=== PATIENT | male | born 1970 | race Caucasian/White ===

== ENCOUNTER 2019-08-27 13:02 | Emergency (ER) | payer OTHER, SELFPAY ==
[2019-08-27 13:03] VITALS: BP 136/79; PULSE 92; RESP 17; TEMP 36.1; O2SAT 99; BMI 27.3
--- NOTE | 2019-08-27 13:17 | ED.DCSUM_ITS ---
- ER Visit Summary Date of Service: 08/27/19 Chief Complaint: [Laceration right thumb] History of Present Illness: The patient is a 48 M [resented to the ER with a laceration to his right thumb. Patient was seen with physician tmd teacher assistant Matthew Diaz. Patient states that he was using a utility knife to cut some ties when he accidentally lacerated his right hand. Patient is ambidextrous but was using his left hand to cut.. He is unsure of his last tetanus. No other medical history.] Physical Examination: [Right hand-patient has a 3 cm laceration over the dorsum of the first carpal of the right thumb. He is got good flexion extension of the thumb against resistance. The laceration appears to abut the edge of the extensor tendon.] Test Results: [None indicated] Emergency Department Course and Treatment: [Patient had laceration repair performed by physician tmd teacher assistant.] Treatment Plan: [Patient to follow-up with primary care physician in 10 days for suture removal] Disposition: [Discharged home in stable condition] Impression: [Right thumb laceration-simple repair-3 cm] This note was generated with [employer] dictation software. It may contain incorrect words, spelling, and punctuation that were not noted in review of the chart prior to signing ED Disposition - Plan for ED Patient: Referrals: Shahida Borrego DO [Primary Care Provider] -
--- NOTE | 2019-08-27 13:32 | ED.VIS.UPPEX ---
History of Present Illness Chief Complaint: Laceration Informant: Patient, Family Occurred: Today Mechanism/Context: Incised Onset: Today Context: Sudden Onset Timing: Continuous Quality of Pain: Throbbing Location: right hand Current Severity: Moderate Maximum Severity: Severe Worsened by: nothing Relieved by: nothing Associated Symptoms: Negative for: Parasthesia, Weakness, Loss of Funtion Tetanus Immunization: >10 years Prior similar symptoms: No Recent Illness/Hospitalization: No Past Medical History - Allergies and Home Meds Allergies/Adverse Reactions: Allergies No Known Allergies Allergy (Verified 08/27/19 13:03) Primary Care Physician: Shahida Borrego DO [Primary Care Provider] - Prior records reviewed: Yes Past Medical History: None Surgical History: noncontributory Smoking Status: Current every day smoker Alcohol: Occasional Drugs: None Review of Systems All systems negative except as indicated General: Denies: Chills, Fever, Sweats Eyes: Denies: Visual changes - bilaterally, Diplopia ENT: Denies: Rhinorrhea, Sore throat Cardiovascular: Denies: Chest pain, Palpitations Respiratory: Denies: Dyspnea, Cough, Dyspnea on exertion Gastrointestinal: Denies: Abdominal pain, Nausea, Vomiting, Diarrhea, Melena, Hematochezia Genitourinary: Denies: Dysuria, Hematuria, Frequency Musculoskeletal: Denies: Back pain, Extremity Pain Skin: Reports: Wounds. Denies: Rash, Abscess, Abrasions Neurological: Denies: Headache, Weakness, Numbness Physical Exam Vital Signs/Narrative: Vital Signs Temp Pulse Resp BP Pulse Ox 08/27/19 13:03 96.9 F L 92 17 136/79 H 99 Inital Vital Signs reviewed: Yes Right Hand: - - 3 cm laceration dorsal aspect first carpal. There is no active bleeding. He had normal active range of motion with flexion extension abduction and adduction of the thumb. Strength testing was 5 out of 5. Capillary refill and sensation were both normal. General: Well nourished, Well developed Head: Normocephalic, Atraumatic Eyes: Perrl, EOMI ENT: No Trauma, Moist Mucous Membranes Neck: Nontender, Full ROM Cardiovascular: Regular rate, Regular rhythm, No murmurs Respiratory: No distress, CTA bilaterally, Chest nontender Abdomen: Soft, Nontender, Nondistended, Normal bowel sounds Back: Nontender Skin: Normal color, No rash Neurological: Alert, Oriented x3, Cranial nerves II-XII grossly intact, Normal Strength, Normal Sensation Psychological: Normal affect Diagnostic/Tx/Re-eval - Medical Decision Making Tetanus updated. Wound was thoroughly anesthetized cleansed irrigated evaluated and sutured see procedure note. Patient will be discharged home with instructions to have these removed in 10 days. Discussed proper wound care and signs of infection to monitor for. He was agreeable with plan all questions answered. Procedures - Lacerations No standard instances Length: 3 cm Depth: Skin Shape: Linear Prep: Sterile Conditions, Betadine Laceration Repair: Lidocaine, Local, Wound explored Irrigated (ml): 120 Number of Sutures/Hannacroix: 5 Suture Information: Ethilon, Simple, 4-0 ED Disposition - Plan for ED Patient: Disposition: Home or Assisted Living Diagnosis: Laceration of left hand, Tetanus toxoid vaccination administered at current visit Instructions: ED Laceration Ext Sutr Stap Tape Referrals: Shahida Borrego DO [Primary Care Provider] - 10 Day for suture removal
[2019-08-27] MEDS: Diphth,Pertuss(Acell),Tet Vac 0.5 ML Vial IM (13:35)
== END 2019-08-27 13:50 | disposition home or self-care (01) ==
LOC: ED 13:42
PROVIDERS: Emergency Provider Physician Assistant Medical; PCP Internal Medicine
DX: S61.011A Laceration without foreign body of right thumb without damage to nail, initial encounter (principal); W26.0XXA Contact with knife, initial encounter; Y93.9 Activity, unspecified; Y92.9 Unspecified place or not applicable; Z23 Encounter for immunization; F17.200 Nicotine dependence, unspecified, uncomplicated
CPT/HCPCS: 12002; 90471; 90715; 99284

== ENCOUNTER 2019-09-23 16:37 | Emergency (ER) | payer OTHER, SELFPAY ==
[2019-09-23 16:38] VITALS: BP 160/100; PULSE 109; RESP 18; TEMP 36; O2SAT 96; BMI 29.6
--- NOTE | 2019-09-23 16:56 | EKG12_ITS ---
Test Reason : NEURO SYM Blood Pressure : / mmHG Vent. Rate : 099 BPM Atrial Rate : 099 BPM P-R Int : 162 ms QRS Dur : 092 ms QT Int : 362 ms P-R-T Axes : 055 054 050 degrees QTc Int : 464 ms Normal sinus rhythm Normal ECG Confirmed by NASIR THOMPSON ([id number]), news assignment editor NORMAN LANDRY ([id number]) on 09/25/2019 2:03:50 PM Referred By: Confirmed By:NASIR THOMPSON
--- NOTE | 2019-09-23 16:57 | ED.VIS.CHEST ---
History of Present Illness Informant: Patient Onset: Today Activity at onset: Rest Timing: Continuous Quality: Sharp, Stabbing Location: Left Chest Current Severity: Mild Maximum Severity: Moderate Worsened By: Movement of Arm Relieved By: Nothing Associated Symptoms: Lightheadedness, Palpitations. Negative for: Nausea, Vomiting, Diaphoresis, Dyspnea, Cough, Fever, Acid Reflux Narrative: 49-year-old male presents to the emergency department complaining of chest pain. The patient states that he was playing darts with his friends had drank a couple of beers started to feel lightheaded started to have palpitations and left-sided chest pain rating down his left arm. He called his son who drove him here and symptoms have resolved on arrival. They last about 30 minutes. No recent travel or surgery no history of DVT or PE he denies any history of coronary disease, he denies any leg pain or swelling vomiting diarrhea fevers cough or upper respiratory symptoms. Prior Similar Symptoms: No Recent Illness/Hospitalization: No CVD Risk Factors: Smoking. Negative for: Hypertension, Diabetes, Hypercholesterolemia, Family History 1' </=55 PE Risk Factors: Negative for: Recent Travel/Surgery, Recenet Immobilization, Prior DVT or PE, Cancer, OCP + Smoking + >/=35 TAD Risk Factors: Negative for: Marfan's Syndrome, Hypertension, Family History <Matthew Green - Last Filed: 09/23/19 17:58> <Leonel Capellan - Last Filed: 09/23/19 22:34> Chief Complaint: General Illness Past Medical History Prior records reviewed: Yes Past Medical History: - - Anxiety Surgical History: - - Left shoulder surgery Lives: With Family Smoking Status: Current every day smoker Alcohol: Occasional Drugs: None <Matthew Green - Last Filed: 09/23/19 17:58> <Leonel Capellan - Last Filed: 09/23/19 22:34> - Allergies and Home Meds Allergies/Adverse Reactions: Allergies No Known Allergies Allergy (Verified 09/23/19 16:40) Primary Care Physician: Shahida Borrego DO [Primary Care Provider] - Review of Systems All systems negative except as indicated General: Denies: Chills, Fever, Sweats Eyes: Denies: Visual changes - left, Visual changes - right, Visual changes - bilaterally, Blurred vision - left, Blurred vision - right, Blurred Vision - bilaterally, Diplopia ENT: Denies: Bilateral ear pain, Left ear pain, Right ear pain, Rhinorrhea, Sore throat Cardiovascular: Reports: Chest pain, Palpitations, Heart racing Respiratory: Denies: Dyspnea, Cough, Dyspnea on exertion Gastrointestinal: Denies: Abdominal pain, Nausea, Vomiting, Diarrhea, Melena, Hematochezia Genitourinary: Denies: Dysuria, Hematuria, Frequency Musculoskeletal: Denies: Back pain, Extremity Pain Skin: Denies: Rash, Wounds Neurological: Denies: Headache, Weakness, Numbness Psych: Reports: Anxiety. Denies: Depression <Matthew Green - Last Filed: 09/23/19 17:58> Physical Exam Vital Signs/Narrative: Vital Signs Temp Pulse Resp BP Pulse Ox 09/23/19 16:38 96.8 F L 109 H 18 160/100 H 96 Inital Vital Signs reviewed: Yes General: Well nourished, Well developed, No Acute Distress Head: Normocephalic, Atraumatic Eyes: Perrl, EOMI ENT: Moist mucous membranes, No rhinorrhea Neck: Supple, Nontender Cardiovascular: Regular rate, Regular rhythm, No murmurs Respiratory: No distress, CTA bilaterally, Chest nontender Abdomen: Soft, Nontender, Nondistended, Normal bowel sounds Back: Nontender, Normal Inspection Extremities: Nontender, No edema Skin: Normal color, No rash Neurological: Alert, Oriented x3, Cranial nerves II-XII grossly intact, Normal Strength, Normal Sensation Psychological: Normal affect, Normal Mood <Matthew Green - Last Filed: 09/23/19 17:58> Vital Signs/Narrative: Vital Signs Pulse Resp BP Pulse Ox 09/23/19 21:18 88 16 110/80 99 09/23/19 19:28 99 20 H 109/81 H 97 <Leonel Capellan - Last Filed: 09/23/19 22:34> Diagnostic/Tx/Re-eval Chest X-Ray - ED: 1 View, Read by ED Physician, Read by Radiologist, No Acute Disease - Rhythm Strip Rhythm Strip: Sinus Rhythm Rate: 99 Ectopy: None - EKG Initial EKG Interpretation: Sinus Rhythm, No Acute Injury Pattern Prior: Unchanged Repeat Eval: Pain Free <Matthew Green - Last Filed: 09/23/19 17:58> - Medical Decision Making Appears well and nontoxic. Vital signs within normal limits. Patient seen with physician's assistant clinical director. Personally a weighted the patient myself at the bedside. Patient had a story of fleeting chest pain in route to EMS. States that he had visual changes while playing darts and drinking alcohol. Patient denies any head trauma. States that all the symptoms have resolved at this time. CT brain negative. Two troponins negative. 2 EKGs also negative. Patient feeling much improved. Asked to follow-up with his primary care provider and return for any new or worsening symptoms. Patient agreeable and discharged home in stable condition. <Leonel Capellan - Last Filed: 09/23/19 22:34> ED Disposition <Matthew Green - Last Filed: 09/23/19 17:58> <Leonel Capellan - Last Filed: 09/23/19 22:34> - Plan for ED Patient: Disposition: Home or Assisted Living Diagnosis: Chest pain, Dizziness Instructions: ED Chest Pain Atypical Unkn Cause, ED Dizziness [facility] Referrals: Shahida Borrego DO [Primary Care Provider] -
--- NOTE | 2019-09-23 17:40 | RAD_ITS ---
STUDY: X-RAY CHEST REASON FOR EXAM: Male, 49 years old. PT STATES SUDDEN ONSET LOSS OF SIGHT, N/T RIGHT ARM, INCREASED HR TECHNIQUE: Single AP portable view of the chest. COMPARISON: Prior study of 06/26/2013 FINDINGS: air sampling and monitoring leads are present. The lungs are clear and expanded. There is no demonstrated pleural abnormality. Normal size heart. Normal mediastinum and theodora. Normal visualized pulmonary arteries. Normal visualized aortic arch and descending thoracic aorta. Normal visualized thoracic spine. There is an old healed fracture of the right fifth rib. There is no demonstrated abnormality of the visualized soft tissue structures of the upper abdomen. RAD/Chest 1 View (Portable) IMPRESSION: No acute cardiopulmonary disease process is seen. Electronically Signed: Lewis Sandy MD at 18:02 EDT , Service support ,
[2019-09-23 17:41] LABS: Absolute Lymphocyte Count 2.09 X10^3/uL (0.83-4.51); Absolute Neutrophil Count 2.5 X10^3/uL (2.0-7.7); Basophil# 0.06 X10^3/uL; Basophil% 1.1 % (0-1); Eosinophil# 0.39 X10^3/uL; Hemoglobin 15.1 g/dL (13.0-16.5); Lymphocyte # 2.09 X10^3/ul (4.0); Lymphocyte % 37.4 % (19-41); Mean Corp Hgb Conc 34.3 g/dL (32-36); Mean Corpuscular Hgb 31.9 pg (27.0-32.0); Monocyte# 0.58 X10^3/uL; Monocyte% 10.4 % (0-10); NRBC Flagged by Analyzer 0 % (0-5); Neutrophil # 2.45 X10^3/uL (2.7-7.7); Neutrophil % 43.7 % (47-70); Platelet Count 352 K/mm3 (150-450); RBC Distribution Width CV 12.5 % (11.6-14.6); RBC Distribution Width SD 42.9 fl (35.1-43.9); Red Blood Count 4.73 M/mm3 (4.6-6.2); White Blood Count 5.6 K/mm3 (4.4-11.0)
[2019-09-23 17:58] LABS: Anion Gap 8 (5-15); BUN 9 mg/dL (7-18); BUN/Creat Ratio 8.1 RATIO (10-20); Calcium,Total 8.7 mg/dL (8.5-10.1); Chloride 106 mmol/L (98-107); Creatinine, Serum 1.11 mg/dL (0.70-1.30); EST Glomerular Filtration Rate 75 mL/min (>60); Est Glom Filt Rate - Afr Amer 90 mL/min (>60); Estimated Creatinine Clearance 74.44 ml/min; Glucose 88 mg/dL (74-106); Potassium 3.7 mmol/L (3.5-5.1); Sodium Level 138 mmol/L (136-145)
--- NOTE | 2019-09-23 18:32 | EKG12_ITS ---
Test Reason : DYSRHYTHMIA Blood Pressure : / mmHG Vent. Rate : 093 BPM Atrial Rate : 093 BPM P-R Int : 156 ms QRS Dur : 084 ms QT Int : 366 ms P-R-T Axes : 059 061 060 degrees QTc Int : 455 ms Normal sinus rhythm Normal ECG Confirmed by NASIR THOMPSON ([id number]), film editor supervisor NORMAN LANDRY ([id number]) on 09/25/2019 2:04:00 PM Referred By: CL Confirmed By:NASIR THOMPSON
--- NOTE | 2019-09-23 18:33 | CT_ITS ---
STUDY: CT BRAIN WITHOUT CONTRAST REASON FOR EXAM: Male, 49 years old. LOSS OF SIGHT-PT SEEINGGRAY ONLY,NUMBNESS AND TINGLING TO LT ARM RADIATION DOSAGE (If Supplied By Facility): CTDIvol = ( 44.99 ) mGy, DLP = ( 812.98 ) mGycm TECHNIQUE: Transaxial CT imaging of the brain was performed without administration of intravenous contrast material. Individualized dose optimization techniques were used for this CT. COMPARISON: No relevant priors. FINDINGS: Normal soft tissue structures. Normal calvarium. Normal size ventricles and extra-axial spaces for the patient''s age. Normal white matter tracts of the cerebral hemispheres. Normal basal ganglia and thalami. Normal brainstem. Normal cerebellum. There is no intracranial hemorrhage. There are no findings of an acute ischemic infarction. Normal visualized paranasal sinuses. CT/Brain/Head without Contrast IMPRESSION: Normal unenhanced CT scan of the brain. If clinically indicated, CTA brain and/or MRI may be helpful for further evaluation at this time. Electronically Signed: Lewis Sandy MD at 19:43 EDT , Service support ,
[2019-09-23 19:28] VITALS: BP 109/81; PULSE 99; RESP 20; O2SAT 97
[2019-09-23 21:18] VITALS: BP 110/80; PULSE 88; RESP 16; O2SAT 99
[2019-09-23 22:27] VITALS: BP 110/80; PULSE 88; RESP 16; O2SAT 99
== END 2019-09-23 22:27 | disposition home or self-care (01) ==
PROVIDERS: Physician Assistant Medical; Emergency Provider Emergency Medicine; PCP Internal Medicine
DX: R07.9 Chest pain, unspecified (principal); R42 Dizziness and giddiness; F41.9 Anxiety disorder, unspecified; F17.200 Nicotine dependence, unspecified, uncomplicated; Z79.899 Other long term (current) drug therapy
CPT/HCPCS: 70450; 71045; 80048; 84484; 85025; 93005; 99284

== ENCOUNTER 2023-07-16 12:53 | Emergency (ER) | payer BC, SELFPAY ==
[2023-07-16 12:54] VITALS: BP 136/98; PULSE 85; RESP 14; TEMP 36; O2SAT 98
[2023-07-16 13:06] VITALS: BMI 29.2
--- NOTE | 2023-07-16 13:07 | ED.VIS.BACK ---
HPI History of Present Illness Chief Complaint: Back [facility] Home Medications buspirone 15 mg tablet 15 mg PO DAILY PRN Anxiety 09/23/19 [History Last Taken Unknown] duloxetine 60 mg capsule,delayed release 60 mg PO DAILY 09/23/19 [History Last Taken Unknown] hydroxyzine HCl 50 mg tablet 50 mg PO DAILY 09/23/19 [History Last Taken Unknown] lamotrigine 25 mg tablet 50 mg PO DAILY 09/23/19 [History Last Taken Unknown] trazodone 50 mg tablet 25 mg PO DAILY 09/23/19 [History Last Taken Unknown] prednisone 50 mg tablet 50 mg PO DAILY #5 tabs 07/16/23 [Rx Last Taken Unknown] Allergy/AdvReac Type Severity Reaction Status Date / Time No Known Allergies Allergy Verified 07/16/23 12:56 Surgical History (Updated 07/16/23 @ 13:08 by Su Patricio) H/O knee surgery H/O wrist surgery History of hip surgery History of surgery on arm Social History Smoking Status: Current every day smoker EXAM Physical Exam Const Vital Signs: 07/16/23 12:54 Temperature 96.8 F L Temperature Source Temporal Pulse Rate 85 Respiratory Rate 14 Blood Pressure 136/98 H Blood Pressure Mean 110 Pulse Ox 98 MDM MDM MDM Narrative Medical decision making narrative: HISTORY OF PRESENT ILLNESS: 52-year-old male presents with back pain. Notes this morning he debbie from bed and developed severe back pain in the right lower back. Notes it was worse and he raises his left leg. Denies any falls or other trauma. No recent MVC use or fall downstairs. Denies any loss of sensation or movement in the legs. Denies any bowel or bladder changes Specifically patient denies any saddle anesthesia, urinary tension, bowel or bladder incontinence, lower extremity weakness, fever or IV drug use, no recent spinal manipulation or surgery, no recent urinary catheterization. REVIEW OF SYSTEMS: All other systems reviewed and are negative except as noted in the history of present illness. At least 10 review of systems reviewed and are negative except as noted in history of present illness. PHYSICAL EXAM: Nursing triage notes reviewed, Vital signs reviewed Constitutional: please see mdm HENT: MMM Eyes: Pupils equal round and reactive to light, Extraocular muscles intact Neck: No stridor, no JVD, full neck ROM Lungs: Clear to auscultation, No wheezing or rales. No increased work of breathing, no conversational dyspnea, no accessory muscle use, no nasal flaring. No respiratory distress noted Heart: Regular rate and rhythm, No murmurs, No rubs and No gallops, 2+ distal pulses (radial, femoral, posterior tibial) in all extremities Abdomen: Soft, there is no tenderness, rigidity, rebound or guarding, no obvious peritoneal signs, no palpable pulsatile abdominal masses, no auscultated abdominal bruit : No CVAT Extremities: No edema Back: No midline step-offs or deformities Neuro: Intact sensation L1-S1 dermatomal distributions. Intact 5/5 strength in hip flexion (T12-L3). Knee extension (L2-L4). Ankle dorsiflexion (L4-L5). Ankle plantar flexion (S1). Great toe extension (L5). 2+ patellar and Achilles DTRs. Skin: No rash or lesions noted MEDICAL DECISION MAKING: Chief Complaint: Back pain External records reviewed: Prior imaging reviewed: No recent [facility] imaging of the spine Factors affecting care: None Social determinants of health: No IV drug use History obtained from others: none Consults: none ALL IMAGES (IF OBTAINED) HAVE BEEN PERSONALLY REVIEWED AND INTERPRETED BY MYSELF. MDM Narrative: Patient was hemodynamically stable, afebrile and nontoxic-appearing. Positive straight leg test on the left, no focal neurologic deficits. No red flag symptoms such as bowel or bladder incontinence, urinary retention or loss of motor sensation I considered the following differential diagnosis: Musculoskeletal back pain, space-occupying lesion of the spinal (epidural abscess, epidural hematoma), cauda equina, conus medullaris, fracture dislocation, AAA, nephrolithiasis, pyelonephritis, aortic dissection Consider obtaining advanced imaging of the spine however thought this was not indicated at this time given reassuring history, exam and lack of focal neurologic deficit The patient presented complaining of back pain. There was no history of recent fall or trauma. There was no evidence to support genitourinary etiology. There is also no evidence to suggest vascular pathology such as AAA dissection. No fevers or other evidence to suspect infectious processes, abscess, osteomyelitis etc. The patient?s neurological exam is normal with normal motor and sensory. There is no saddle paresthesias reported and no bowel or bladder incontinence or retention. I suspect the pain is mechanical in nature. Clinical suspicion, plan of care and management was discussed with the patient. The patient was instructed to follow up with their health care provider. The patient was also instructed to return if the pain worsened, changed, or developed weakness or bowel or bladder trouble. The patient agreed with plan. I completed a structured, evidence-based clinical evaluation to screen for acute non-traumatic spinal emergencies. The patient has a normal detailed neurologic exam and red flag historical factors were negative. The evidence indicates that the patient is very low risk for an acute spinal emergency and this is consistent with my clinical intuition. The risk of further workup is higher than the likelihood of the patient having a spinal epidural abscess or other dangerous emergency spinal condition. It is, therefore, in the patient?s best interest not to do additional emergent testing at this time. Shared Decision-Making I have discussed with the patient my clinical impression and the result of an evidence-based clinical evaluation to screen for spinal epidural abscess and other spinal emergencies, as well as the risk of further testing and hospitalization. The evidence shows that the risk for an acute spinal emergency is less than 1%. Although the risk of an acute spinal emergency has not been completely eliminated, the risks of further testing likely exceed any potential benefit, and the patient agrees with not pursuing further emergent evaluation for causes of back pain at this time. I considered escalating the patient's care to admission or observation however thought this was not necessary at this time. Will give pain control instructions at home. The patient and/or family, caregivers express understanding. The patient and/or family, caregivers agrees with the plan. Total critical care time today provided was at least 0 minutes. This excludes separately billable procedures. Critical care time (if documented) is secondary to the patient having high probability of clinically significant/life threatening deterioration in the patient's condition which required my urgent intervention. Impression: 1. Acute back pain 2. Lumbar radiculopathy Faustino Peterson DO Discharge Plan Triage Chief Complaint: Back ED Provider: Faustino Peterson Dx/Rx/DC Orders Instructions: ED Sciatica Prescriptions: New prednisone 50 mg tablet 50 mg PO DAILY Qty: 5 0RF No Action trazodone 50 MG tablet 25 mg PO DAILY hydroxyzine HCl 50 MG tablet 50 mg PO DAILY lamotrigine 25 MG tablet 50 mg PO DAILY buspirone 15 MG tablet 15 mg PO DAILY PRN (Reason: Anxiety) duloxetine 60 MG capsule,delayed release(DR/EC) 60 mg PO DAILY Stand Alone Forms: ED Work / School Excuse Primary Care Provider: Shahida Borrego Referrals: Deonte Cheung DO [Med Staff - Active Staff] - Shahida Borrego DO [Primary Care Provider] - Activity Restrictions/Additional Instructions: Thank you for trusting us with your care today! Your presentation is likely secondary to lumbar radiculopathy (sciatica). This is an inflammatory condition of your back that should resolve with rest, and anti-inflammatories. Anti-inflammatories have been prescribed as below. Please take Tylenol (2 pills, 650 mg), ibuprofen (2 pills, 400 mg) every 6 hours as needed for pain and fever control. Please take prednisone as prescribed. Please go to local pharmacy or drugstore obtain lidocaine patches. Please return to the emergency department if your symptoms change or worsen. Please follow with your primary care physician and/or orthopedic surgery for further outpatient evaluation and management. Disposition Disposition: Home, Self Care
--- NOTE | 2023-07-16 13:33 | ED.RN ---
PT SON OUT TO TALK WITH THIS RN. STATES PT HAS BEEN DRINKING. PHYSICIAN AWARE
[2023-07-16] MEDS: Ibuprofen 200 MG Tablet 400 MG PO (13:39)
[2023-07-16] MEDS: Oxycodone/Apap 5/325 Tablet PO (13:40)
[2023-07-16] MEDS: Lidocaine 5% Patch 1 PATCH TOPICAL (13:41)
[2023-07-16] MEDS: dexAMETHasone 4 MG Tablet 6 MG PO (13:41)
== END 2023-07-16 14:12 | disposition home or self-care (01) ==
PROVIDERS: Emergency Provider Emergency Medicine; PCP Internal Medicine; Visit Provider Emergency Medicine
DX: M54.16 Radiculopathy, lumbar region (principal); F17.200 Nicotine dependence, unspecified, uncomplicated; Z79.899 Other long term (current) drug therapy
CPT/HCPCS: 99283

== ENCOUNTER 2024-07-12 13:43 | Emergency (ER) | payer BC, SELFPAY ==
[2024-07-12 13:44] VITALS: BP 163/93; PULSE 89; RESP 18; TEMP 36.6; O2SAT 100; BMI 26.5
[2024-07-12 14:27] LABS: Absolute Lymphocyte Count 1.11 X10^3/uL (0.83-4.51); Absolute Neutrophil Count 6.1 X10^3/uL (2.0-7.7); Basophil# 0.04 X10^3/uL; Basophil% 0.5 % (0-1); Eosinophil# 0.12 X10^3/uL; Eosinophils% 1.5 % (0-5); Hematocrit 43.4 % (40-54); Hemoglobin 15.5 g/dL (13.0-16.5); Lymphocyte # 1.11 X10^3/ul (0.83-4.51); Lymphocyte % 13.8 % (19-41); Mean Corp Hgb Conc 35.7 g/dL (32-36); Mean Corpuscular Hgb 31.1 pg (27.0-32.0); Mean Platelet Vol. 8.9 fl (6.2-12.0); Monocyte# 0.67 X10^3/uL; Monocyte% 8.3 % (0-10); NRBC Flagged by Analyzer 0 % (0-5); Neutrophil # 6.09 X10^3/uL (2.7-7.7); Neutrophil % 75.7 % (47-70); Platelet Count 310 K/mm3 (150-450); RBC Distribution Width CV 13.1 % (11.6-14.6); RBC Distribution Width SD 41.3 fl (35.1-43.9); Red Blood Count 4.99 M/mm3 (4.6-6.2); White Blood Count 8.1 K/mm3 (4.4-11.0)
[2024-07-12 14:41] LABS: Alcohol, Blood (Medical)-Serum < 10.1 mg/dL (<=10.0); Anion Gap 14 (5-15); BUN 9 mg/dL (4-19); BUN/Creat Ratio 9.1 RATIO (10-20); Calcium,Total 9.9 mg/dL (7.6-11.0); Carbon Dioxide 21.4 mmol/L (21.0-32.0); Chloride 103 mmol/L (98-108); Creatinine, Serum 0.96 mg/dL (0.70-1.20); EST Glomerular Filtration Rate 94 (>60); Estimated Creatinine Clearance 82.24 ml/min (50-250); Glucose 100 mg/dL (70-99); Potassium 4.1 mmol/L (3.3-5.1); Sodium Level 139 mmol/L (133-145)
[2024-07-12 14:44] VITALS: BP 144/79; PULSE 74; RESP 22; O2SAT 99
[2024-07-12 14:55] LABS: Amphetamine Urine NEGATIVE (<1000 ng/mL); Barbiturate Urine NEGATIVE (< 200 ng/mL); Benzodiazepine Urine NEGATIVE (< 200 ng/mL); Buprenorphine Urine NEGATIVE (< 200 ng/mL); Cocaine Urine NEGATIVE (< 300 ng/mL); Fentanyl, Urine NEGATIVE; Methadone Urine NEGATIVE (< 300 ng/mL); Opiates Urine NEGATIVE (< 300 ng/mL); Oxycodone, Urine NEGATIVE (< 100 ng/mL); PCP Urine NEGATIVE (< 25 ng/mL); THC Urine PRESUMPTIVE POSITIVE (< 50 ng/mL)
--- NOTE | 2024-07-12 15:20 | EDS_ITS ---
HPI HPI - Psych History of Present Illness Chief Complaint: Suicidal Informant: patient Onset/Context/Timing Onset: Today Context: Sudden Onset Timing: Continuous Current Severity: Moderate Maximum Severity: Moderate Associated Symptoms Associated Symptoms - Psych: Positive for Depressed and Suicidal Thoughts Specific plan (suicidal thought): Plan he lacerated his wrist. He has access to a knife that he carries. Narrative Narrative: 53-year-old male history of depression on antidepressants. Sees the counseling center where there is psychiatrist. Said today things ischemia ahead and he literally thought that he might lacerate his arm in an attempt to commit suicide. He has a knife that he carries with him. He has already been evaluated by the counseling center who brought him in to be placed after medical clearance. His last mental health hospitalization was last November. He had 1 prior to that about 15 years ago or so. He denies any recent illness. Prior similar symptoms: Yes Recent Illness/Hospitalization: No PFSH PFSH Home Medications ?Medication ?Instructions ?Recorded ?Last Taken ?Type hydroxyzine HCl 50 mg tablet 50 mg PO DAILY PRN anxiet y 09/23/19 Unknown History disulfiram 500 mg tablet 250 mg PO DAILY 07/12/24 Unk nown History thiamine HCl (vitamin B1) 100 mg 100 mg PO DAILY 07/12 Unknown History tablet trazodone 150 mg tablet 75 mg PO QHS 07/12/24 Unknow n History Allergy/AdvReac Type Severity Reaction Status Date / Time No Known Allergies Allergy Verified 07/12/24 13:47 Surgical History History of surgery on arm H/O wrist surgery H/O knee surgery History of hip surgery Social History Smoking Status: Current every day smoker tobacco type: cigarettes and e- cigarettes ROS ROS ED ROS Narrative Denies recent illness. Constitutional Constitutional ED: Denies chills or fever(s) Eyes Eyes: Denies blurry vision ENT ENT ED: Denies ear pain Cardiovascular Cardiovascular: Denies chest pain Respiratory/Chest Respiratory/Chest: Denies cough or dyspnea Gastrointestinal Gastrointestinal: Denies abdominal pain Genitourinary Genitourinary ED: Denies dysuria Musculoskeletal Musculoskeletal: Denies arthralgias or back pain Integumentary Denies abscess or Abrasions Neurologic Neurologic: Denies headache(s) Psychiatric Psychiatric: Denies anxiety or depression Endocrine Endocrinology: Denies polydipsia Hematologic/Lymphatic Hematologic/Lymphatic: Denies easy bleeding, easy bruising or lymphadenopathy Allergic/Immunologic Allergic/Immunologic ED: Denies mouth swelling, tongue swelling or urticaria EXAM Physical Exam Narrative Exam Narrative: 53-year-old male standing upright and in the room. Vital signs are stable afebrile. Currently no acute distress. He is awake alert. No signs of tox idrome. Answering questions and following commands. Making eye contact. He is cooperative. Currently he is neither verbally or physically violent. HEENT exam pupils round react to light. Moist mucous membranes. No trauma out of his head or face. Neck nontender. No trauma. Lungs clear to auscultation bilaterally. Heart regular rhythm rate about 90 no murmur. Chest wall ribs nontender. Abdomen soft nontender. Moving all 4 extremities. Normal range of motion. Normal strength. Forearms there are currently no lacerations. No prior scarring that I see. Back nontender. Neurologically is awake alert. Answering questions following commands. Again no toxidrome. No smell of alcohol. Const Vital Signs: 07/12/24 13:44 07/12/24 14:44 07/12/24 20:24 Temperature 97.8 F 98.2 F Temperature Source Oral Pulse Rate 89 74 87 Respiratory Rate 18 22 H 16 Blood Pressure 163/93 H 144/79 H 155/95 H Blood Pressure Mean 116 100 115 Pulse Ox 100 99 95 Oxygen Delivery Method Room Air Room Air Positive well nourished and well developed; Negative for cachectic, contractures or unkempt General Appearance ED: well developed and NAD; Negative for unkempt, cachectic, contractures or pallor Nutritional Appearance: Negative for cachectic HEENT Reports moist mucous membranes normocephalic and atraumatic Eyes PERRL and EOMs intact bilaterally Neck no lymphadenopathy, supple and no JVD Resp normal respiratory effort and clear to auscultation bilaterally Cardio S1 normal heart sound, S2 normal heart sound and no murmurs Rate: regular rate Rhythm: regular rhythm GI non-tender, non-distended and no masses Auscultation: normoactive bowel sounds Palpation: soft; Negative for tender or guarding Back/Spine no CVA tenderness General Back: Negative for CVA tenderness Cervical Spine: Negative for cervical spine tenderness Thoracic Spine / Upper Back: Negative for thoracic spinal tenderness Lumbar Spine / Lower Back: Negative for lumbar spinal tenderness Extremity normal to inspection General Extremety ED: Negative for edema or tenderness General Extremity: Negative for edema Neuro oriented x3 and CN's II-XII intact bilaterally Sensorium / Orientation: alert, oriented to person, oriented to place and oriented to time; Negative for orientation impaired, confused, lethargic or stuporous Motor Exam: strength 5/5 throughout Psych mental status grossly normal, thought process normal, cooperative, affect normal, speech normal, activity/motor behavior normal, denies hallucinations and denies homicidal ideation; Negative for denies suicidal ideation Appearance: grossly normal, appropriate and well kempt; Negative for unkempt, disheveled, bizarre or intubated Attitude: calm, engaged, No paranoid, No withdrawn and No bizarre Activity / Motor Behavior: appropriate eye contact Speech: normal speech, No incoherent, No excessive, No minimal and No slow Mood & Affect: depressed Thought Process: normal thought process Thought Content: normal thought content Attention / Concentration: attention grossly intact Memory / Cognition: memory grossly intact Insight: insight good Judgement: judgement good Skin General Skin Exam: Negative for jaundice or pallor Lesions: no lesions Rashes: no rashes Trauma: Negative for abrasion or laceration MDM MDM MDM Narrative Medical decision making narrative: 53-year-old male presents with suicidal ideation. Plan to cut his wrist. Access to a knife. Crisis evaluation done and they plan on placing him in a mental health facility. He is medically cleared and his exam and labs are unremarkable. Waiting for placement. Patient doing well at 8:49 PM. He was given a dose of oral Ativan. History & Record Review Discussion w/independent historian: Patient Additional record(s) reviewed:: Prior inpatient record, Prior outpatient record, Prior ED visit and Prior labs Lab Data Attestation: I reviewed the patient's lab results. Lab results narrative: CBC normal. White count 8. H&H 15 and 43. Platelets 310. Electrolytes unremarkable gap 14. Normal BUN 9 creatinine 0.9. Glucose 100. Urine tox negative except positive for cannabis. Alcohol negative. Labs: Laboratory Results - last 24 hr 07/12/24 14:16 WBC 8.1 RBC 4.99 Hgb 15.5 Hct 43.4 MCV 87.0 MCH 31.1 MCHC 35.7 RDW Std Deviation 41.3 RDW Coeff of Radha 13.1 Plt Count 310 MPV 8.9 Immature Gran % (Auto) 0.200 Neut % (Auto) 75.7 H Lymph % (Auto) 13.8 L [place]on % (Auto) 8.3 Eos % (Auto) 1.5 Baso % (Auto) 0.5 Absolute Neuts (auto) 6.1 Absolute Lymphs (auto) 1.11 Nucleated RBC % 0 Sodium 139 Potassium 4.1 Chloride 103 Carbon Dioxide 21.4 Anion Gap 14 BUN 9 Creatinine 0.96 Estim Creat Clear Calc 82.24 Est GFR (MDRD) Non-Af 94 BUN/Creatinine Ratio 9.1 L Glucose 100 H Calcium 9.9 Urine Opiates Screen NEGATIVE U Buprenorphine Qual NEGATIVE Ur Oxycodone Screen NEGATIVE Urine Methadone Screen NEGATIVE Urine Fentanyl Screen NEGATIVE Ur Barbiturates Screen NEGATIVE Ur Phencyclidine Scrn NEGATIVE Ur Amphetamines Screen NEGATIVE U Benzodiazepines Scrn NEGATIVE Urine Cocaine Screen NEGATIVE U Cannabinoids Screen PRESUMPTIVE POSITIVE Ethyl Alcohol < 10.1 Discharge Plan Triage Chief Complaint: Suicidal ED Provider: Michael Patiño Dx/Rx/DC Orders Clinical Impression: Depression with suicidal ideation Prescriptions: No Action hydroxyzine HCl 50 MG tablet 50 mg PO DAILY PRN (Reason: anxiety) disulfiram 500 mg tablet 250 mg PO DAILY thiamine HCl (vitamin B1) 100 mg tablet 100 mg PO DAILY trazodone 150 mg tablet 75 mg PO QHS Primary Care Provider: Care Physician,Deepti Primary Referrals: NOT,DEFINED [Non-Staff] - Print Language: Hebrew
[2024-07-12] MEDS: LORazepam 0.5 MG Tablet PO (20:23)
[2024-07-12 20:24] VITALS: BP 155/95; PULSE 87; RESP 16; TEMP 36.8; O2SAT 95
--- NOTE | 2024-07-13 00:44 | ED.RN ---
See downtime charting.
== END 2024-07-12 22:30 ==
PROVIDERS: Emergency Provider Emergency Medicine; Visit Provider Emergency Medicine
DX: R45.851 Suicidal ideations (principal); F32.A Depression, unspecified; F17.210 Nicotine dependence, cigarettes, uncomplicated; F17.290 Nicotine dependence, other tobacco product, uncomplicated; Z79.899 Other long term (current) drug therapy
CPT/HCPCS: 36415; 80048; 80307; 82077; 85025; 99284